=== PATIENT | female | born 1980 | race Caucasian/White ===

== ENCOUNTER 2019-06-09 16:04 | Emergency (ER) | payer BC, SELFPAY ==
--- NOTE | 2019-06-09 16:08 | ED.GENADULT ---
HPI - General Adult General Chief complaint: Upper Respiratory Infection Stated complaint: Asthma cough Time Seen by Provider: 06/09/19 16:23 Source: patient and RN notes reviewed Mode of arrival: ambulatory Limitations: no limitations History of Present Illness HPI narrative: This patient's had a one-week history of a cough which is productive of yellow to light green phlegm without chest pain. She has had a little a.m. shortness of breath. She has a history of asthma and this respiratory infection has triggered off her asthma. 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 She has had no chest pain. She has not had any fever. She has not had any ear pain or nasal drainage. She has had no rashes. She has had no known exposure to anyone with strep throat, mono, influenza, bronchitis, pneumonia that she is aware of. She has not been traveling. She has run out of her Advair and albuterol inhalers and wishes to have a refill on these today. Related Data Home Medications Medication Instructions Recorded Confirmed albuterol sulfate 06/09/19 Allergies Allergy/AdvReac Type Severity Reaction Status Date / Time ciprofloxacin [From Cipro] Allergy Unknown Verified 06/09/19 16:20 escitalopram [From Lexapro] AdvReac Unknown Verified 06/09/19 16:21 Review of Systems Review of Systems: Narrative: CONSTITUTIONAL: Denies fever, chills, or sweats. Noncontributory except as pertains to the past medical history and the history of the present illness. EYES: Denies visual changes, redness, or discharge. ENT: Denies rhinorrhea, congestion, sore throat, or otalgia. CARDIOVASCULAR: Denies chest pain, palpitations, or edema. RESPIRATORY: Denies cough or dyspnea. GASTROINTESTINAL: Denies abdominal pain, nausea, vomiting, or diarrhea. GENITOURINARY: Denies dysuria or hematuria. SKIN: Denies rash or itching. MUSCULOSKELETAL: Denies back pain, joint pain, or myalgia. NEUROLOGIC: Denies headache, numbness, or weakness. PSYCHIATRIC: Denies anxiety or depression. [facility] Social History Social History Gender identity (if verbalized by the patient): Female Comments At time of signature, I have reviewed and agree with nursing past medical, surgical, social, and family history.Please see nursing chart for further information. There is no relevant family history pertinent to the presenting complaint. Exam Narrative: Exam Narrative: GENERAL: Well-appearing, well-nourished, and in no acute distress. HEAD: Normocephalic, atraumatic. EYES: PERRLA and EOMI. EARS: TM's clear bilaterally and the canals are clear. NOSE: Nares clear, no rhinorrhea or epistaxis. THROAT:Mucous membranes moist.Oropharynx normal without erythema or exudates. NECK: Supple. No adenopathy of the neck, supraclavicular, axillary, or inguinal areas. RESPIRATORY: No respiratory distress. Airway patent. Respirations non-labored. The lungs have minor rhonchi in the upper and midlung clemente but not the bases. There are no wheezes, no rales, no retractions, no use of accessory muscle respirations. She is not cyanotic and not dyspneic. Her pulse ox on room air is 98% her current temperature is 98.9. She has a loose wet sounding cough during the exam. HEART: Regular rate and rhythm. No murmur heard. Normal peripheral pulses. ABDOMEN: Soft, nontender, nondistended, normal active bowel sounds.No masses. No rebound or guarding, No organomegaly. There is no CVA pain. No pain McBurney's point. The patient is a negative Kennedy sign and negative Rovsing sign. There are no pulsatile masses no audible bruits. EXTREMITIES: No clubbing/cyanosis/ edema. Normal strength & range of motion. SKIN: Warm, dry.Normal color. No rash or skin lesions. Patient is well-nourished well-hydrated and has moist mucous membranes and no tenting of the skin. NEURO: Alert and oriented. CN 2-12 grossly intact. No focal deficits. PSYCH: Normal mood and affect. Course Vital
[2019-06-09 16:18] VITALS: BP 111/68; PULSE 98; RESP 16; TEMP 37.2; O2SAT 98
== END 2019-06-09 16:38 | disposition home or self-care (01) ==
PROVIDERS: Emergency Provider Family Medicine
DX: J40 Bronchitis, not specified as acute or chronic (principal); J45.20 Mild intermittent asthma, uncomplicated
CPT/HCPCS: 99203; G0463

== ENCOUNTER 2019-06-28 19:08 | Emergency (ER) | payer BC, SELFPAY ==
[2019-06-28 19:19] VITALS: BP 141/79; PULSE 78; RESP 16; TEMP 36.2; O2SAT 98
--- NOTE | 2019-06-28 19:27 | ED.FEMALEGU ---
HPI - Female Genitourinary General Chief complaint: Urogenital-Female Stated complaint: Genital itchy/bumps Time Seen by Provider: 06/28/19 19:20 Source: patient and RN notes reviewed Mode of arrival: ambulatory Limitations: no limitations History of Present Illness HPI Narrative: Patient presents today complaining of irritated bumps to her external genitalia that are white in color x1 week. Symptoms have been worsening since onset. Denies any vaginal discharge or pain. She has not tried any [id number] medications for symptoms prior to arrival. MD elicited complaint: genital rash Related Data Allergies Allergy/AdvReac Type Severity Reaction Status Date / Time escitalopram [From Lexapro] Allergy Intermediate Hallucinati Verified 06/28/19 19:19 ng ciprofloxacin [From Cipro] AdvReac Intermediate Muscle Pain Verified 06/28/19 19:19 Review of Systems Review of Systems: Narrative: CONSTITUTIONAL: Denies body aches, fever, chills, or sweats. EYES: Denies visual changes, redness, or discharge. ENT: Denies rhinorrhea, congestion, sore throat, or otalgia. CARDIOVASCULAR: Denies chest pain, palpitations, or edema. RESPIRATORY: Denies cough or dyspnea. GASTROINTESTINAL: Denies abdominal pain, nausea, vomiting, or diarrhea. GENITOURINARY: Denies dysuria or hematuria. SKIN: Denies wounds.+ Rash MUSCULOSKELETAL: Denies back pain, joint pain, or myalgia. NEUROLOGIC: Denies headache, numbness, tingling, or weakness. PSYCH: Denies depression or anxiety. [facility] Social History Social History Gender identity (if verbalized by the patient): Female Comments At time of signature, I have reviewed and agree with nursing past medical, surgical, social and family history unless otherwise noted. Please see nursing chart for further information. There is no relevant family history pertinent to the presenting complaint Exam Narrative: Exam Narrative: GENERAL: Well-appearing, well-nourished, and in no acute distress. HEAD: Normocephalic, atraumatic. EYES: EOMI. No redness or drainage. Conjunctivae normal. ENT: Mucous membranes pink and moist. NECK: Normal AROM. CHEST: No respiratory distress. : Midlly erythematous papular rash to the bilateral outer labia. Mildly erythematous inner labia with small amount of excoriation on the right. Erythematous vaginal opening. Small amount of white thin discharge. No vesicular lesions. EXTREMITIES: Normal range of motion. No edema. SKIN: Warm, dry, no rash. NEURO: No focal deficits. Alert and oriented x3. Gait steady. PSYCH: Normal affect. No signs of depression or anxiety. Course Vital Signs Vital signs: Vital Signs Temperature 97.2 F L 06/28/19 19:19 Pulse Rate 78 06/28/19 19:19 Respiratory Rate 16 06/28/19 19:19 Blood Pressure 141/79 H 06/28/19 19:19 Pulse Oximetry 98 06/28/19 19:19 Temperature 97.2 F L 06/28/19 19:19 Pulse Rate 78 06/28/19 19:19 Respiratory Rate 16 06/28/19 19:19 Blood Pressure 141/79 H 06/28/19 19:19 Pulse Oximetry 98 06/28/19 19:19 Reviewed. Pt has been instructed to follow up with her PCP regarding her elevated blood pressure today. MDM - Female Genitourinary Differential Diagnosis Differential diagnosis: Likely bacterial vaginosis, vaginitis and other (Vulvovaginitis, Mona) Critical Care Time Critical Care Time Critical Care Time: No Discharge Plan Discharge Clinical Impression: Candidal vulvovaginitis Patient Disposition: Home, Self-Care Condition: Stable Instructions: Vulvovaginal Candidiasis (ED) Additional Instructions: Please take the Diflucan as prescribed. Follow-up with an [facility] if symptoms are not resolving. Your blood pressure was elevated above 120/80 today at Urgent Care. This puts you above the threshold for follow up. Please schedule a followup visit with your personal physician as soon as possible, for further evaluation and treatment. Even blood pressure exceeding 120/80 ma
== END 2019-06-28 19:30 | disposition home or self-care (01) ==
PROVIDERS: Emergency Provider Nurse Practitioner
DX: B37.3 Candidiasis of vulva and vagina (principal)
CPT/HCPCS: 99213; G0463

== ENCOUNTER 2019-08-14 16:36 | Emergency (ER) | payer BC, SELFPAY ==
--- NOTE | ~2019-08-14 | XR_ITS ---
EXAMINATION: XR chest 2V DATE: 08/14/2019 17:09 INDICATION: Cough and wheezing TECHNIQUE: PA and lateral views of the chest are obtained. COMPARISON: None available FINDINGS: The lungs are free of acute opacities. There is no pleural effusion or pneumothorax. The ca rdiomediastinal silhouette is normal. There is mild dextrocurvature of the thoracic spine. IMPRESSION: 1. No acute cardiopulmonary abnormality. Reviewed, dictated and finalized at location A.
[2019-08-14 16:46] VITALS: BP 116/74; PULSE 81; RESP 18; TEMP 37.1; O2SAT 97
--- NOTE | 2019-08-14 16:50 | ED.ASTHMA ---
HPI - Asthma General Chief Complaint: Upper Respiratory Infection Stated Complaint: wheezing/cough Time Seen by Provider: 08/14/19 16:50 Source: patient Mode of arrival: ambulatory Limitations: no limitations History of Present Illness HPI Narrative: Valerie Hairston is a 39 yo female with a prior history of asthma comes to [facility] care for refill of prescriptions and mentions that also has had cough and upset stomach. No fever Related Data Home Medications Medication Instructions Recorded Confirmed fluticasone propion-salmeterol INHALATION 08/14/19 [Wixela Inhub] Allergies Allergy/AdvReac Type Severity Reaction Status Date / Time escitalopram [From Lexapro] Allergy Intermediate Hallucinati Verified 06/28/19 19:19 ng ciprofloxacin [From Cipro] AdvReac Intermediate Muscle Pain Verified 06/28/19 19:19 Review of Systems Review of Systems: Narrative: CONSTITUTIONAL: Denies fever, chills, sweats. EYES: Denies visual changes, redness, discharge. ENT: Denies rhinorrhea, congestion, sore throat, otalgia. CARDIOVASCULAR: Denies chest pain, palpitations, edema. RESPIRATORY: Denies dyspnea, mild wheezing, dry cough GASTROINTESTINAL: Denies abdominal pain, has nausea, vomiting, has diarrhea. GENITOURINARY: Denies dysuria, hematuria, abnormal discharge SKIN: Denies rash or itching. NEUROLOGIC: Denies numbness, or focal weakness. PSYCHIATRIC: Denies anxiety or depression. [facility] Family History Family History Other Hypertension Social History Social History (Updated 08/14/19 @ 17:01 by Kimmie Negron CNP) Smoking status: Current every day smoker Alcohol intake: current Gender identity (if verbalized by the patient): Female Exam Narrative: Exam Narrative: GENERAL: This is a well-nourished, well-developed patient, in mild distress. afebrile, HEAD: normocephalic, atraumatic. EYES: Sclera clear/white. Vision is grossly intact. EARS: External ears normal, Hearing grossly intact. NOSE: External nose normal with nasal discharge, nares without redness, has rhinorrhea. THROAT: Mucous membranes moist, posterior pharynx mild erythema NECK: Neck supple, non-tender CARDIOVASCULAR: Regular rate and rhythm without murmurs, gallops, or rubs. RESPIRATORY: Diminished to auscultation. Breath sounds equal bilaterally. Mild wheezes om left, rales, or rhonchi. Occ dry cough GASTROINTESTINAL: Abdomen soft, non-tender, SKIN: warm, intact with no suspicious lesions or rash, good texture and turgor. NEURO: awake, alert, and oriented to person, place and time. There were no obvious focal neurologic abnormalities. Steady gait EXTREMITIES: Normal range of motion. BACK: Nontender without deformity Course Course Emergency Course: Med refill fills for asthma-asthma, [place] Chest x-ray negative for acute cardiopulmonary process Vital Signs Vital signs: Vital Signs Temperature 98.7 F 08/14/19 16:46 Pulse Rate 81 08/14/19 16:46 Respiratory Rate 18 08/14/19 16:46 Blood Pressure 116/74 08/14/19 16:46 Pulse Oximetry 97 08/14/19 16:46 Temperature 98.7 F 08/14/19 16:46 Pulse Rate 81 08/14/19 16:46 Respiratory Rate 18 08/14/19 16:46 Blood Pressure 116/74 08/14/19 16:46 Pulse Oximetry 97 08/14/19 16:46 MDM - Asthma Differential Diagnosis Differential diagnosis: Likely Acute exacerbation, Pneumonia and other Discharge Plan Discharge Clinical Impression: Asthma Qualifiers: Asthma severity: mild Asthma persistence: intermittent Asthma complication type: uncomplicated Qualified Code(s): J45.20 - Mild intermittent asthma, uncomplicated Patient Disposition: Home, Self-Care Condition: Stable Instructions: Antibiotic Form, Asthma (ED) Prescriptions: New fluticasone propion-salmeterol [Wixela Inhub] 250-50 mcg/dose blister with device 1 inhalation INHALATION Q12H Qty: 60 RF: 0 albuterol sulfate 90 mcg/actuation HF
== END 2019-08-14 17:23 | disposition home or self-care (01) ==
PROVIDERS: Emergency Provider Nurse Practitioner
DX: J45.20 Mild intermittent asthma, uncomplicated (principal); F17.200 Nicotine dependence, unspecified, uncomplicated
CPT/HCPCS: 71046; 99213; G0463

== ENCOUNTER 2019-12-21 15:56 | Emergency (ER) | payer BC, SELFPAY ==
[2019-12-21 16:05] VITALS: BP 121/81; PULSE 93; RESP 18; TEMP 36.7; O2SAT 100
--- NOTE | 2019-12-21 16:20 | ED.UPPEXIN ---
HPI - Extremity Injury (Upper) General Chief Complaint: Extremity Injury, Upper Stated Complaint: Right Wrist Pain Time Seen by Provider: 12/21/19 16:12 Source: patient and RN notes reviewed Mode of arrival: ambulatory Limitations: no limitations History of Present Illness HPI narrative: Patient presents today complaining of 10 to 14-day history of right wrist pain. Denies any injury or trauma. Describes the pain as sharp, pulling, and burning. Currently rates her pain 2/10, which increases to 5/10 with movement. She has been taking aspirin and Tylenol without much relief. She does not work at this time and does not do any repetitive motions at home. Denies numbness or tingling in the arm or hand. Related Data Home Medications Medication Instructions Recorded Confirmed dicyclomine 20 mg PO QID 12/21/19 12/21/19 omeprazole magnesium [Prilosec OTC] 20 mg PO DAILY 12/21/19 12/21/19 rifaximin [Xifaxan] 550 mg PO TID 12/21/19 12/21/19 Allergies Allergy/AdvReac Type Severity Reaction Status Date / Time escitalopram [From Lexapro] Allergy Intermediate Hallucinati Verified 12/21/19 16:13 ng ciprofloxacin [From Cipro] AdvReac Intermediate Muscle Pain Verified 12/21/19 16:13 Review of Systems Review of Systems: Narrative: CONSTITUTIONAL: Denies body aches, fever, chills, or sweats. EYES: Denies visual changes, redness, or discharge. ENT: Denies rhinorrhea, congestion, sore throat, or otalgia. CARDIOVASCULAR: Denies chest pain, palpitations, or edema. RESPIRATORY: Denies cough or dyspnea. GASTROINTESTINAL: Denies abdominal pain, nausea, vomiting, or diarrhea. GENITOURINARY: Denies dysuria or hematuria. SKIN: Denies rash, itching, or wounds. MUSCULOSKELETAL: Denies back pain, or myalgia. + Right wrist pain NEUROLOGIC: Denies headache, numbness, tingling, or weakness. PSYCH: Denies depression or anxiety. [facility] Social History Social History (Updated 08/14/19 @ 17:01 by Kimmie Negron CNP) Smoking status: Current every day smoker Alcohol intake: current Gender identity (if verbalized by the patient): Female Comments At time of signature, I have reviewed and agree with nursing past medical, surgical, social and family history unless otherwise noted. Please see nursing chart for further information. There is no relevant family history pertinent to the presenting complaint Exam Narrative: Exam Narrative: GENERAL: Well-appearing, well-nourished, and in no acute distress. HEAD: Normocephalic, atraumatic. EYES: EOMI. No redness or drainage. Conjunctivae normal. ENT: Mucous membranes pink and moist. NECK: Normal AROM. CHEST: No respiratory distress. EXTREMITIES: Right wrist: Tenderness to the dorsum of the distal radius, extending to the mid forearm. Patient reports some swelling to the forearm, but this is not visualized. No ecchymosis, erythema. Pain increases with flexion and extension of the wrist. Distal sensation intact. Capillary refill normal. Radial pulse normal. All other extremities grossly normal. SKIN: Warm, dry, no rash. Capillary refill normal. Normal skin turgor. NEURO: No focal deficits. Alert and oriented x3. Gait steady. PSYCH: Normal affect. No signs of depression or anxiety. Course Vital Signs Vital signs: Vital Signs Temperature 98.0 F 12/21/19 16:05 Pulse Rate 93 12/21/19 16:05 Respiratory Rate 18 12/21/19 16:05 Blood Pressure 121/81 12/21/19 16:05 Pulse Oximetry 100 12/21/19 16:05 Temperature 98.0 F 12/21/19 16:05 Pulse Rate 93 12/21/19 16:05 Respiratory Rate 18 12/21/19 16:05 Blood Pressure 121/81 12/21/19 16:05 Pulse Oximetry 100 12/21/19 16:05 Reviewed. Pt has been instructed to follow up with her PCP regarding her elevated blood pressure today. MDM - Extremity Injury (Upper) Differential Diagnosis Differential diagnosis: Likely sprain and strain of wrist and other (Carpal tunnel, tendinitis) Critical Care Time Critical Car
== END 2019-12-21 16:23 | disposition home or self-care (01) ==
PROVIDERS: Emergency Provider Nurse Practitioner
DX: M77.9 Enthesopathy, unspecified (principal); F17.200 Nicotine dependence, unspecified, uncomplicated
CPT/HCPCS: 99212; G0463

== ENCOUNTER 2020-05-04 15:22 | Emergency (ER) | payer BC, SELFPAY ==
[2020-05-04 15:32] VITALS: BP 149/92; PULSE 90; RESP 18; TEMP 37.1; O2SAT 100
--- NOTE | 2020-05-04 15:39 | ED.ANIMALBIT ---
HPI - Animal Bite General Chief Complaint: Animal Bite Stated Complaint: Dog Bite on hand Time Seen by Provider: 05/04/20 15:30 Source: patient Mode of arrival: ambulatory Limitations: no limitations History of Present Illness HPI narrative: Valerie Hairston is a 40 yo female with no PMH who was bitten by a neighbor's dog while walking hers. Both women and her dog attacked. States that the dog had its rabies shots. Wound is a puncture jian on the left palm with more glancing park on the dorsum of her left hand, patient states that hand is stiff and painful to move although she has movement and is able to bend fingers without difficulty Given a tetanus shot is does not know when the last time she had one is Related Data Allergies Allergy/AdvReac Type Severity Reaction Status Date / Time escitalopram [From Lexapro] Allergy Intermediate Hallucinati Verified 05/04/20 15:42 ng ciprofloxacin [From Cipro] AdvReac Intermediate Muscle Pain Verified 05/04/20 15:42 Review of Systems Review of Systems: Narrative: CONSTITUTIONAL: Denies fever, chills, sweats. EYES: Denies visual changes, redness, discharge. ENT: Denies rhinorrhea, congestion, sore throat, otalgia. CARDIOVASCULAR: Denies chest pain, palpitations, edema. RESPIRATORY: Denies dyspnea, wheezing, cough GASTROINTESTINAL: Denies abdominal pain, nausea, vomiting, diarrhea. GENITOURINARY: Denies dysuria, hematuria, abnormal discharge SKIN: Denies rash or itching. Dog bite to left palm of hand NEUROLOGIC: Denies numbness, or focal weakness. PSYCHIATRIC: Denies anxiety or depression. [facility] Past Medical History Medical History (Updated 05/04/20 @ 15:56 by Kimmie Negron CNP) Depression Family History Family History Other Hypertension Social History Social History Smoking status: Current every day smoker Alcohol intake: current Gender identity (if verbalized by the patient): Female Comments At time of signature, I agree with nursing past medical, surgical, social and family history. There is no relevant family history pertinent to the presenting complaint. BP elevated, patient upset about dog- will follow up with pcp Exam Narrative: Exam Narrative: GENERAL: This is a well-nourished, well-developed patient, in mild distress. HEAD: normocephalic, atraumatic. EYES: . Sclera clear/white. Vision is grossly intact. EARS: External ears normal, . Hearing grossly intact. NOSE: External nose normal without nasal discharge, nares without redness, no rhinorrhea. THROAT: Mucous membranes moist, NECK: Neck supple, non-tender CARDIOVASCULAR: Regular rate and rhythm without murmurs, gallops, or rubs. RESPIRATORY: Clear to auscultation. Breath sounds equal bilaterally. No wheezes, rales, or rhonchi. GASTROINTESTINAL: Abdomen soft, SKIN: warm, intact with redness and single puncture jian on palm side mid palm of left hand. Minor scratches on the dorsum side NEURO: awake, alert, and oriented to person, place and time. There were no obvious focal neurologic abnormalities. Steady gait EXTREMITIES: Normal range of motion. BACK: Nontender without deformity Course Course Emergency Course: Patient came here with dog bite to left hand Single puncture jian to palm side of left hand was cleaned pressure dressing applied; patient was given tetanus; started on Augmentin; given [place] for pain Vital Signs Vital signs: Vital Signs Temperature 98.8 F 05/04/20 15:32 Pulse Rate 90 05/04/20 15:32 Respiratory Rate 18 05/04/20 15:32 Blood Pressure 149/92 H 05/04/20 15:32 Pulse Oximetry 100 05/04/20 15:32 Temperature 98.8 F 05/04/20 15:32 Pulse Rate 90 05/04/20 15:32 Respiratory Rate 18 05/04/20 15:32 Blood Pressure 149/92 H 05/04/20 15:32 Pulse Oximetry 100 05/04/20 15:32 MDM - Animal Bite Differential Diagnosis Differential diagn
[2020-05-04] MEDS: TETANUS,DIPHTHERIA,AC PERTUSSIS ADULT (0.5 ML) BOOSTRIX IM (15:43)
== END 2020-05-04 15:51 | disposition home or self-care (01) ==
PROVIDERS: Emergency Provider Nurse Practitioner
DX: S61.452A Open bite of left hand, initial encounter (principal); Z23 Encounter for immunization; W54.0XXA Bitten by dog, initial encounter; F17.200 Nicotine dependence, unspecified, uncomplicated
CPT/HCPCS: 90471; 90714; 90715; 99213; G0463

== ENCOUNTER 2020-10-12 19:15 | Emergency (ER) | payer SELFPAY ==
--- NOTE | 2020-10-12 19:19 | ED.FEMALEGU ---
HPI - Female Genitourinary General Chief complaint: Urogenital-Female Stated complaint: uti Time Seen by Provider: 10/12/20 19:19 Source: patient and RN notes reviewed Mode of arrival: ambulatory Limitations: no limitations History of Present Illness HPI Narrative: 40-year-old female presents with concern for burning with urination, suprapubic cramping, foul smelling urine, dark-colored urine. Reports symptoms have been present for 1-1 and half weeks. She reports she also had unprotected sex approximately 2 weeks ago. She denies any abnormal vaginal discharge, vaginal irritation or rash. She denies fever, abdominal pain, nausea, vomiting, body aches, chills. MD elicited complaint: UTI Related Data Home Medications Medication Instructions Recorded Confirmed No Home Medications 10/12/20 10/12/20 Allergies Allergy/AdvReac Type Severity Reaction Status Date / Time escitalopram [From Lexapro] Allergy Intermediate Hallucinati Verified 10/12/20 19:35 ng ciprofloxacin [From Cipro] AdvReac Intermediate Muscle Pain Verified 10/12/20 19:35 Review of Systems Review of Systems: Narrative: CONSTITUTIONAL: Denies malaise, chills, sweats, or fever. CARDIOVASCULAR: Denies chest pain, palpitations, or edema. RESPIRATORY: Denies cough or dyspnea. GASTROINTESTINAL: Denies abdominal pain, nausea, vomiting, diarrhea, bloody, or mucous stools. GENITOURINARY: Reports dysuria, suprapubic discomfort, foul-smelling urine, cloudy urine denies frequency, urgency, hematuria. SKIN: Denies rash or itching. MUSCULOSKELETAL: Denies back pain, joint pain, or myalgia. All systems reviewed & are unremarkable except as noted in HPI and below [facility] Past Medical History Medical History (Updated 10/12/20 @ 19:56 by Joelle Foote NP) Depression Family History Family History Other Hypertension Social History Social History Smoking status: Current every day smoker Alcohol intake: current Gender identity (if verbalized by the patient): Female Comments At time of signature, agree with nursing past medical, surgical, social and family history. There is no relevant family history pertinent to the presenting complaint Exam Narrative: Exam Narrative: GENERAL: Well-appearing, well-nourished, and in no acute distress. HEAD: Normocephalic. EYES: PERRLA, conjunctivae clear. NECK: Supple. No lymphadenopathy CHEST: Clear to auscultation. No respiratory distress. HEART: Regular rate and rhythm. ABDOMEN: Soft, nontender upon palpation, nondistended, normal active bowel sounds, no palpable or pulsatile masses, no guarding. No CVA tenderness SKIN: Warm, dry, no rash. NEURO: Alert and oriented x3. PSYCH: Normal mood and affect Course Course Emergency Course: Discussed with patient inability to prophylactically treat gonorrhea, chlamydia today due to no supply of azithromycin. 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 Patient understands that she should abstain from sex or have protected sex until she has her results in her treatment. Patient is aware of, understands and agrees to treatment plan. Anticipatory guidance given. Patient agrees to follow-up as directed and is aware of reasons to seek care at the emergency department. Portions of this record may have been created with voice recognition software Vital Signs Vital signs: Vital Signs Temperature 97.6 F 10/12/20 19:27 Pulse Rate 80 10/12/20 19:27 Respiratory Rate 16 10/12/20 19:27 Blood Pressure 132/72 10/12/20 19:27 Pulse Oximetry 99 10/12/20 19:27 Temperature 97.6 F 10/12/20 19:27 Pulse Rate 80 10/12/20 19:27 Respiratory Rate 16 10/12/20 19:27 Blood Pressure 132/72 10/12/20 19:27 Pulse Oximetry 99 10/12/20 19:27 Reviewed. MDM - Female G
[2020-10-12 19:27] VITALS: BP 132/72; PULSE 80; RESP 16; TEMP 36.4; O2SAT 99
--- NOTE | 2020-10-14 15:20 | PC.NURSE ---
spoke to regina sandoval, and requested reorder of trich test.
== END 2020-10-12 20:10 | disposition home or self-care (01) ==
PROVIDERS: Emergency Provider Nurse Practitioner
DX: N39.0 Urinary tract infection, site not specified (principal); Z72.51 High risk heterosexual behavior; F17.200 Nicotine dependence, unspecified, uncomplicated
CPT/HCPCS: 81003; 87086; 87088; 87491; 87591; 87661; 99214; G0463

== ENCOUNTER 2021-03-21 12:54 | Emergency (ER) | payer BC, SELFPAY ==
--- NOTE | 2021-03-21 13:03 | ED.URI ---
HPI - URI/Sore Throat General Chief Complaint: Upper Respiratory Infection Stated Complaint: Sore throat,Ear Pain History of Present Illness HPI Narrative: This a 41-year-old that presents to the urgent care complaining of fever, chills, headache, body aches, sore throat. Patient states symptoms started yesterday states she took some ibuprofen last night Related Data Home Medications Medication Instructions Recorded Confirmed albuterol sulfate 2 inh INHALATION DAILY 03/21/21 03/21/21 fluticasone propion-salmeterol 2 inh INHALATION DAILY 03/21/21 03/21/21 [Wixela Inhub] Allergies Allergy/AdvReac Type Severity Reaction Status Date / Time escitalopram [From Lexapro] Allergy Intermediate Hallucinati Verified 03/21/21 13:07 ng ciprofloxacin [From Cipro] AdvReac Intermediate Muscle Pain Verified 03/21/21 13:07 Review of Systems Review of Systems: Sore throat, headache, fever, body aches All systems reviewed & are unremarkable except as noted in HPI and below PMFSH Past Medical History Medical History (Updated 03/22/21 @ 00:02 by Bert Jenkins) Depression Family History Family History Other Hypertension Social History Social History Smoking status: Current every day smoker Alcohol intake: current Gender identity (if verbalized by the patient): Female Comments At time as signature, I have reviewed and agree with nursing past medical, social, surgical and family history. Please see nursing chart for further information. There is no relevant family history pertinent to the presenting complaint. Exam Narrative: GENERAL:ill-appearing in no acute distress. Febrile HEAD:Normocephalic, EYES: PERRLA ENT: Nares clear, clear rhinorrhea . Mucous membranes moist. Postnasal drainage CHEST: Coarse with scattered wheezes to auscultation. No respiratory distress. HEART: Tachycardic rate and rhythm. ABDOMEN: Soft, nontender, nondistended, normal active bowel sounds. EXTREMITIES: Normal range of motion. No edema. SKIN: Warm, dry, no rash. NEURO: No focal deficits. Alert and oriented x3. Patient refuses a strep test, she has refused a influenza test and states that she is only going to accept a Covid test Course Course Emergency Course: Patient refused influenza swab, Strep swab and she states she came for a covid swab her symptoms started last night. Vital Signs Vital signs: Vital Signs Temperature 102.6 F H 03/21/21 13:05 Pulse Rate 113 H 03/21/21 13:05 Respiratory Rate 18 03/21/21 13:05 Blood Pressure 145/80 H 03/21/21 13:05 Pulse Oximetry 99 03/21/21 13:05 Temperature 102.4 F H 03/21/21 13:44 Pulse Rate 113 H 03/21/21 13:05 Respiratory Rate 18 03/21/21 13:05 Blood Pressure 145/80 H 03/21/21 13:05 Pulse Oximetry 99 03/21/21 13:05 MDM - URI/Sore Throat MDM Narrative Medical decision making narrative: Had a discussion with patient about her symptoms explained to patient that if she was Covid positive then I treat 1 way but if she had influenza or the strep throat I would treat differently but patient still refused test she will be scheduled for outpatient Covid swab. As patient has only been having symptoms since last night less than 24 hours we will schedule for outpatient services Differential Diagnosis Differential diagnosis: Likely upper respiratory infection, croup, otitis media, sinusitis, viral infection, bronchitis, influenza and pharyngitis Discharge Plan Discharge Clinical Impression: Viral infection Fever Qualifiers: Fever type: unspecified Qualified Code(s): R50.9 - Fever, unspecified Patient Disposition: Home, Self-Care Condition: Stable Instructions: Antibiotic Form, Pharyngitis (ED), Viral Syndrome (ED) Additional Instructions: Viral illness may last between 7-12days; antibiotic is NOT recommended at this time. Recommend antih
[2021-03-21 13:05] VITALS: BP 145/80; PULSE 113; RESP 18; TEMP 39.2; O2SAT 99
[2021-03-21 13:22] VITALS: TEMP 39.2
[2021-03-21] MEDS: IBUPROFEN 600 MG TABLET PO (13:22)
[2021-03-21 13:44] VITALS: TEMP 39.1
== END 2021-03-21 13:44 | disposition home or self-care (01) ==
PROVIDERS: Emergency Provider Nurse Practitioner Family; PCP Nurse Practitioner Family
DX: B34.9 Viral infection, unspecified (principal); R50.9 Fever, unspecified; F17.200 Nicotine dependence, unspecified, uncomplicated
CPT/HCPCS: 99213; A9270; G0463

== ENCOUNTER → 2021-03-23 03:13 | Outpatient (CLI) | payer BC, SELFPAY ==
[2021-03-23 17:50] LABS: SARS-CoV-2 RNA PCR Negative
== END ==
PROVIDERS: PCP Nurse Practitioner Family; Visit Provider Nurse Practitioner Family
DX: R50.9 Fever, unspecified (principal); Z20.822 Contact with and (suspected) exposure to COVID-19
CPT/HCPCS: C9803; U0003; U0005

== ENCOUNTER 2021-03-24 10:56 | Emergency (ER) | payer BC, SELFPAY ==
[2021-03-24 11:10] VITALS: BP 142/84; PULSE 74; RESP 18; TEMP 36.2; O2SAT 100
--- NOTE | 2021-03-24 11:32 | ED.DENTAL ---
HPI - Dental/Oral General Chief complaint: Dental/Oral Stated complaint: painful sores in nasal/lip area Source: patient Mode of arrival: ambulatory Limitations: no limitations History of Present Illness HPI Narrative: Patient is a 41-year-old female who presents complaining of fever blisters to mouth and nose. Patient recently has had viral illness and has been treated prednisone. Patient's Covid test was negative. Patient reports she is feeling much better and noticed many fever blisters starting approximately 2 days ago. She denies using any [id number] cream for treatment of relief. She denies all other complaints at this time. Patient reports she has had Valtrex for the same in the past. Related Data Home Medications Medication Instructions Recorded Confirmed albuterol sulfate 2 inh INHALATION DAILY 03/21/21 03/24/21 fluticasone propion-salmeterol 2 inh INHALATION DAILY 03/21/21 03/24/21 [Wixela Inhub] Allergies Allergy/AdvReac Type Severity Reaction Status Date / Time escitalopram [From Lexapro] Allergy Intermediate Hallucinati Verified 03/24/21 11:01 ng ciprofloxacin [From Cipro] AdvReac Intermediate Muscle Pain Verified 03/24/21 11:01 Review of Systems Review of Systems: CONSTITUTIONAL: Denies fever, chills, or sweats. EYES: Denies visual changes, redness, or discharge. ENT: Denies rhinorrhea, congestion, sore throat, or otalgia. CARDIOVASCULAR: Denies chest pain, palpitations, or edema. RESPIRATORY: Denies cough or dyspnea. GASTROINTESTINAL: Denies abdominal pain, nausea, vomiting, or diarrhea. GENITOURINARY: Denies dysuria or hematuria. SKIN: Reports blisters to mouth and nose MUSCULOSKELETAL: Denies back pain, joint pain, or myalgia. NEUROLOGIC: Denies headache, numbness, dizziness, or weakness. PSYCHIATRIC: Denies anxiety or depression. [facility] Past Medical History Medical History Depression Family History Family History Other Hypertension Social History Social History Smoking status: Current every day smoker Alcohol intake: current Gender identity (if verbalized by the patient): Female Comments At the time of signature, I have reviewed and agree with nursing past medical, surgical, social, and family history unless otherwise noted. Please see nursing chart for further information. There is no relevant family history pertinent to the presenting complaint. Exam Narrative: GENERAL: Well-appearing, well-nourished, and in no acute distress. HEAD: Normocephalic, atraumatic. EYES: EOMI. No redness or drainage. Conjunctiva are normal. ENT: Mucous membranes pink and moist. Clusters of blisters to upper and lower lip and in right nares. NECK: AROM. Supple. No lymphadenopathy. CHEST: No respiratory distress. HEART: Regular rate and rhythm. EXTREMITIES: Normal range of motion. SKIN: Warm, dry, no rash. NEURO: No focal deficits. Alert and oriented x3. Gait steady. PSYCH: Normal affect. No signs of depression or anxiety. Course Vital Signs Vital signs: Vital Signs Temperature 36.2 C L 03/24/21 11:10 Pulse Rate 74 03/24/21 11:10 Respiratory Rate 18 03/24/21 11:10 Blood Pressure 142/84 H 03/24/21 11:10 Pulse Oximetry 100 03/24/21 11:10 Temperature 36.2 C L 03/24/21 11:10 Pulse Rate 74 03/24/21 11:10 Respiratory Rate 18 03/24/21 11:10 Blood Pressure 142/84 H 03/24/21 11:10 Pulse Oximetry 100 03/24/21 11:10 Reviewed-patient is informed that they may have pre-hypertension or hypertension based on a blood pressure reading. I recommend the patient call the primary care provider listed on their discharge instructions or a physician of their choice this week to arrange follow-up for further evaluation of possible pre-hypertension or hypertension. MDM - Dental/Oral MDM Narr
== END 2021-03-24 11:47 | disposition home or self-care (01) ==
PROVIDERS: Emergency Provider Nurse Practitioner
DX: B00.9 Herpesviral infection, unspecified (principal); F17.200 Nicotine dependence, unspecified, uncomplicated
CPT/HCPCS: 99213; G0463

== ENCOUNTER 2021-05-29 15:38 | Emergency (ER) | payer BC, SELFPAY ==
[2021-05-29 15:46] VITALS: BP 132/77; PULSE 89; RESP 16; TEMP 36.8; O2SAT 100
--- NOTE | 2021-05-29 16:07 | ED.WOUNDLAC ---
HPI - Wound/Laceration General Chief Complaint: Wound/Laceration Stated Complaint: Laceration on finger Time Seen by Provider: 05/29/21 16:05 Source: patient, RN notes reviewed and old records reviewed Mode of arrival: ambulatory Limitations: no limitations History of Present Illness HPI narrative: 41-year-old female presents to the [facility] with left second finger distal aspect pain and concern for infection. Patient states about a week and a half ago she hit her finger with a configuration consultant knife. Was seen at [facility], area was cleaned and Dermabond applied. Patient states that she went back with concerns over infection but was prescribed Bactroban and Bactrim. Has been taking it. Tip of finger does not appear red, warm or swollen. Related Data Home Medications Medication Instructions Recorded Confirmed albuterol sulfate 2 inh INHALATION DAILY 03/21/21 03/24/21 fluticasone propion-salmeterol 2 inh INHALATION DAILY 03/21/21 03/24/21 [Wixela Inhub] Allergies Allergy/AdvReac Type Severity Reaction Status Date / Time escitalopram [From Lexapro] Allergy Intermediate Hallucinati Verified 03/24/21 11:01 ng ciprofloxacin [From Cipro] AdvReac Intermediate Muscle Pain Verified 03/24/21 11:01 Review of Systems Review of Systems: All systems reviewed & are unremarkable except as noted in HPI and below Constitutional: Constitutional: Reports no additional constitutional complaints, Denies chills and Denies fever(s) Eyes: Eyes: Reports no additional eye complaints ENT: Reports system reviewed and no additional complaints, except as documented Cardiovascular: Cardiovascular: Reports no additional cardiovascular complaints Respiratory: Respiratory: Reports no additional respiratory complaints Musculoskeletal: Musculoskeletal: Reports as per HPI Comments: 2nd finger left hand pain Integumentary/Breasts: Skin/Breast: Reports system reviewed and no additional complaints, except as docu Neurologic: Reports system reviewed and no additional complaints, except as documented Psychiatric: Psychiatric: Reports no additional psychiatric complaints Allergic/Immunologic: Allergic/Immunologic: Reports no additional allergic/immunologic complaints [facility] Past Medical History Medical History Depression Family History Family History Other Hypertension Social History Social History Smoking status: Current every day smoker Alcohol intake: current Gender identity (if verbalized by the patient): Female Comments At the time of my signature, I reviewed and agree with the nursing past medical, surgical, social, and family history. There is no relevant family history pertinent to the patient complaint. Exam Const: General: healthy appearing, no acute distress and alert Nutritional Appearance: well nourished Orientation/consciousness: patient oriented x3 Limitations: no limitations HENMT: Head: normal to inspection Ears: external ears normal Eyes: Pupils: Equal, round and reactive pupils present Neck: Neck: normal visual inspection, no lymphadenopathy and no meningeal signs Chest: Chest palpation & inspection: normal inspection of the chest Resp: Effort & Inspection: normal respiratory effort Cardio: Rate: regular rate Back/Spine/Pelvis: Back: no CVA tenderness Skin: General skin exam: normal color Rashes: no rashes Other: Has Dermabond to the distal aspect left finger, around the nail. Healing laceration under Dermabond. No swelling, redness or increased warmth to the area. No drainage noted. Tenderness to the area Neuro: General: patient oriented x3, moves all extremities, no meningeal signs and no focal motor deficits Speech: normal speech Gait exam (Neuro): Normal gait present Extrem: General: normal to inspection Psych: Appearance: grossl
== END 2021-05-29 16:20 | disposition home or self-care (01) ==
PROVIDERS: Emergency Provider Nurse Practitioner; PCP Nurse Practitioner Family
DX: M79.645 Pain in left finger(s) (principal); F17.200 Nicotine dependence, unspecified, uncomplicated
CPT/HCPCS: 99212; G0463

== ENCOUNTER 2021-11-26 19:29 | Emergency (ER) | payer BC, SELFPAY ==
[2021-11-26 19:57] VITALS: BP 137/84; PULSE 80; RESP 20; TEMP 36.6; O2SAT 100
--- NOTE | 2021-11-26 20:02 | ED.SKABFB ---
HPI - Skin/Abscess/Foreign Bdy General Chief complaint: Skin/Abscess/Foreign Body Stated complaint: LEFT FOOT 1ST DIGITED INFECTED TOE Time Seen by Provider: 11/26/21 20:03 Source: patient, RN notes reviewed and old records reviewed Mode of arrival: ambulatory Limitations: no limitations History of Present Illness HPI narrative: 41-year-old female presents to the [facility] with left great toe infection. Bruising, swelling, redness and fluctuance noted around the nail. Nail is loose. Patient states that she dropped something on it a month ago. It was bruised, tried drilling a hole in the top of the nail without any success. Nail is currently loose. States the redness and the pus area started a few days ago, unsure of timeframe. Poor foot hygiene noted Related Data Allergies Allergy/AdvReac Type Severity Reaction Status Date / Time escitalopram [From Lexapro] Allergy Intermediate Hallucinati Verified 03/24/21 11:01 ng ciprofloxacin [From Cipro] AdvReac Intermediate Muscle Pain Verified 03/24/21 11:01 Review of Systems Review of Systems: All systems reviewed & are unremarkable except as noted in HPI and below Constitutional: Constitutional: Reports no additional constitutional complaints, Denies chills and Denies fever(s) Eyes: Eyes: Reports no additional eye complaints ENT: Reports system reviewed and no additional complaints, except as documented Cardiovascular: Cardiovascular: Reports no additional cardiovascular complaints Respiratory: Respiratory: Reports no additional respiratory complaints Gastrointestinal: Gastrointestinal: Reports no additional gastrointestinal complaints Musculoskeletal: Musculoskeletal: Reports no additional musculoskeletal complaints Integumentary/Breasts: Skin/Breast: Reports as per HPI and Reports erythema (Left great toe) Neurologic: Reports system reviewed and no additional complaints, except as documented Psychiatric: Psychiatric: Reports no additional psychiatric complaints Allergic/Immunologic: Allergic/Immunologic: Reports no additional allergic/immunologic complaints [facility] Past Medical History Medical History Depression Family History Family History Other Hypertension Social History Social History Smoking status: Current every day smoker Alcohol intake: current Gender identity (if verbalized by the patient): Female Comments At the time of my signature, I reviewed and agree with the nursing past medical, surgical, social, and family history. There is no relevant family history pertinent to the patient complaint. Exam Const: General: healthy appearing, no acute distress and alert Nutritional Appearance: well nourished and obese Orientation/consciousness: patient oriented x3 Limitations: no limitations HENMT: Head: normal to inspection Ears: external ears normal Eyes: General: appearance normal, both eyes and all related structures Pupils: Equal, round and reactive pupils present Neck: Neck: normal visual inspection, no lymphadenopathy and no meningeal signs Chest: Chest palpation & inspection: normal inspection of the chest Resp: Effort & Inspection: normal respiratory effort and no use of accessory muscles Auscultation: clear to auscultation bilaterally, no crackles, no rales, no rhonchi and no wheezes Cardio: Rate: regular rate Rhythm: regular rhythm Back/Spine/Pelvis: Cervical Spine: normal cervical lordosis Thoracic/Lumbar Spine: thoracic and lumbar spine normal to inspection Skin: General skin exam: normal color Rashes: no rashes Wounds: no wounds Other: Redness and inflammation noted around left great toe. Small pus pocket noted at the base of the nail. Neuro: General: patient oriented x3, moves all extremities, no meningeal signs and no focal motor deficits Cranial nerv
== END 2021-11-26 20:40 | disposition home or self-care (01) ==
PROVIDERS: Emergency Provider Nurse Practitioner
DX: L08.9 Local infection of the skin and subcutaneous tissue, unspecified (principal); S90.412A Abrasion, left great toe, initial encounter; W20.8XXA Other cause of strike by thrown, projected or falling object, initial encounter; S90.212A Contusion of left great toe with damage to nail, initial encounter; F17.200 Nicotine dependence, unspecified, uncomplicated
CPT/HCPCS: 99213; G0463

== ENCOUNTER 2022-03-08 09:35 | Emergency (ER) | payer BC, SELFPAY ==
[2022-03-08 09:54] VITALS: BP 131/93; PULSE 81; RESP 16; TEMP 36.8; O2SAT 100
--- NOTE | 2022-03-08 10:19 | ED.EAR ---
HPI - Ear Problem General Chief complaint: Ear Stated complaint: hearing loss right ear Time Seen by Provider: 03/08/22 10:23 Source: patient, RN notes reviewed and old records reviewed Mode of arrival: ambulatory Limitations: no limitations History of Present Illness HPI Narrative: 42-year-old female presents to the [facility] decreased hearing in the right ear for 2 weeks. Has also stated she has had intermittent stuffy nose. No treatment prior to arrival. Has not followed up with a primary care provider, reports that she does not have 1. Requesting refills of advir, received when she had COVID last November Complaint: decreased hearing Related Data Allergies Allergy/AdvReac Type Severity Reaction Status Date / Time escitalopram [From Lexapro] Allergy Intermediate Hallucinati Verified 03/08/22 10:10 ng ciprofloxacin [From Cipro] AdvReac Intermediate Muscle Pain Verified 03/08/22 10:10 Review of Systems Review of Systems: All systems reviewed & are unremarkable except as noted in HPI and below Constitutional: Constitutional: Reports no additional constitutional complaints, Denies chills and Denies fever(s) Eyes: Eyes: Reports no additional eye complaints ENT: Reports as per HPI Cardiovascular: Cardiovascular: Reports no additional cardiovascular complaints Respiratory: Respiratory: Reports no additional respiratory complaints Gastrointestinal: Gastrointestinal: Reports no additional gastrointestinal complaints Musculoskeletal: Musculoskeletal: Reports no additional musculoskeletal complaints Integumentary/Breasts: Skin/Breast: Reports system reviewed and no additional complaints, except as docu Neurologic: Reports system reviewed and no additional complaints, except as documented Psychiatric: Psychiatric: Reports no additional psychiatric complaints Allergic/Immunologic: Allergic/Immunologic: Reports no additional allergic/immunologic complaints [facility] Past Medical History Medical History Depression Family History Family History Other Hypertension Social History Social History Smoking status: Current every day smoker Alcohol intake: current Gender identity (if verbalized by the patient): Female Comments At the time of my signature, I reviewed and agree with the nursing past medical, surgical, social, and family history. There is no relevant family history pertinent to the patient complaint. Exam Const: General: healthy appearing, no acute distress, alert and well nourished Nutritional Appearance: well nourished and obese Orientation/consciousness: patient oriented x3 Limitations: no limitations HENMT: Head: normal to inspection Ears: external ears normal and TM abnormal with fluid behind the TM on the right; not erythematous and with no loss of landmarks Face/Nose/Sinus: Normal external nose present and Normal nares present Face and sinus: normal facial exam Mouth: Yes Normal oral and palatal mucosa present, Yes lip normal and Yes moist mucous membranes Throat: posterior oropharynx normal and uvula midline Eyes: General: appearance normal, both eyes and all related structures Pupils: Equal, round and reactive pupils present Neck: Neck: normal visual inspection, no lymphadenopathy and no meningeal signs Chest: Chest palpation & inspection: normal inspection of the chest Resp: Effort & Inspection: normal respiratory effort and no use of accessory muscles Auscultation: clear to auscultation bilaterally, no crackles, no rales, no rhonchi and no wheezes Cardio: Rate: regular rate Rhythm: regular rhythm Skin: General skin exam: normal color Rashes: no rashes Wounds: no wounds Neuro: General: patient oriented x3, moves all extremities, no meningeal signs and no focal motor deficits Cranial nerves: Yes Equal, round and oniel
== END 2022-03-08 10:42 | disposition home or self-care (01) ==
PROVIDERS: Emergency Provider Nurse Practitioner
DX: H65.01 Acute serous otitis media, right ear (principal); F17.290 Nicotine dependence, other tobacco product, uncomplicated
CPT/HCPCS: 99213; G0463

== ENCOUNTER 2023-07-22 10:51 | Emergency (ER) | payer SELFPAY ==
--- NOTE | ~2023-07-22 | XR_ITS ---
EXAMINATION: XR chest 2V DATE: 07/22/2023 11:49 INDICATION: Cough. Congestion. TECHNIQUE: Frontal and lateral views of the chest were obtained. COMPARISON: Chest 2 views 08/14/2019 FINDINGS: There is no pneumonia, pleural effusion, or pneumothorax. The heart size is normal. IMPRESSION: 1. No acute cardiopulmonary disease. Reviewed, dictated and finalized at location A.
[2023-07-22 11:01] VITALS: BP 121/72; PULSE 76; RESP 18; TEMP 36.7; O2SAT 99
--- NOTE | 2023-07-22 11:31 | ED.URI ---
HPI - URI/Sore Throat General Chief Complaint: Upper Respiratory Infection Stated Complaint: Sinus Time Seen by Provider: 07/22/23 11:31 Source: patient, RN notes reviewed and old records reviewed Mode of arrival: ambulatory Limitations: no limitations History of Present Illness HPI Narrative: 43-year-old female presents to [facility] for complaint productive with clear sputum, congestion, bilateral ear discomfort and myalgias for 1 week. Patient denies fever, nausea, vomiting, diarrhea, headache, sore throat. Patient endorses history of asthma and states that she does not have her inhalers at home because she does not have insurance. Respirations even and nonlabored, no signs of distress. Patient able to tolerate fluids by mouth Related Data Allergies Allergy/AdvReac Type Severity Reaction Status Date / Time escitalopram [From Lexapro] Allergy Intermediate Hallucinati Verified 07/22/23 11:12 ng ciprofloxacin [From Cipro] AdvReac Intermediate Muscle Pain Verified 07/22/23 11:12 Review of Systems Review of Systems: All systems reviewed & are unremarkable except as noted in HPI and below Constitutional: Constitutional: Reports body ache(s), Denies fever(s) and Denies headache(s) Eyes: Eyes: Reports no additional eye complaints ENT: Reports otalgia ( bilateral), Reports nasal congestion, Reports nasal discharge, Reports sinus pressure and Denies sore throat Cardiovascular: Cardiovascular: Reports no additional cardiovascular complaints, Denies chest pain and Denies dyspnea Respiratory: Respiratory: Reports no additional respiratory complaints, Reports chest congestion, Reports cough, Denies dyspnea and Reports wheezing Musculoskeletal: Musculoskeletal: Reports myalgias Neurologic: Reports system reviewed and no additional complaints, except as documented Psychiatric: Psychiatric: Reports no additional psychiatric complaints [facility] Past Medical History Medical History Depression Family History Family History Other Hypertension Social History Social History Smoking status: Current every day smoker Alcohol intake: current Gender identity (if verbalized by the patient): Female Comments At the time of my signature, I reviewed and agree with the nursing past medical, surgical, social, and family history. There is no relevant family history pertinent to the patient complaint. Exam Const: General: cooperative, healthy appearing, comfortable, no acute distress, alert and well nourished Nutritional Appearance: well nourished Orientation/consciousness: patient oriented x3 Limitations: no limitations HENMT: Head: normal to inspection Ears: external ears normal Face/Nose/Sinus: Normal external nose present, Normal nares present, normal facial exam, No erythema and No edema Face and sinus: normal facial exam, no erythema and no edema Mouth: Yes Normal oral and palatal mucosa present Throat: posterior oropharynx abnormal erythema and postnasal drainage Eyes: General: appearance normal, both eyes and all related structures Neck: Neck: normal visual inspection, full ROM and no meningeal signs Lymphatic: no lymphadenopathy noted and no lymphedema noted Chest: Chest palpation & inspection: normal inspection of the chest Resp: Effort & Inspection: normal respiratory effort and able to speak in complete sentences Auscultation: wheezes expiratory wheezes, inspiratory wheezes and scattered wheezes Cardio: Jugular venous distension: no JVD Rate: regular rate Rhythm: regular rhythm Back/Spine/Pelvis: Cervical Spine: cervical ROM normal Skin: General skin exam: normal color, no rashes or lesions noted and turgor normal Neuro: General: patient oriented x3, gait normal, moves all extremities and no meningeal signs Speech: normal speech Gait ex
[2023-07-22] MEDS: ALBUTEROL SULFATE NEB 2.5 MG/3 ML INH INHALATION (11:54)
[2023-07-22] MEDS: IPRATROPIUM BR 0.02% INH SOLN 0.5 MG/2.5 ML VIAL INHALATION (11:54)
== END 2023-07-22 12:42 | disposition home or self-care (01) ==
PROVIDERS: Emergency Provider Nurse Practitioner Family
DX: J06.9 Acute upper respiratory infection, unspecified (principal); Z20.822 Contact with and (suspected) exposure to COVID-19; F17.200 Nicotine dependence, unspecified, uncomplicated
CPT/HCPCS: 71046; 87426; 87804; 94640; 99213; G0463

== ENCOUNTER 2024-06-27 15:42 | Emergency (ER) | payer OTHER, SELFPAY ==
--- NOTE | 2024-06-27 15:50 | ED_ITS ---
HPI - Dental/Oral General Chief complaint: Dental/Oral Stated complaint: TOOTHACHE/SWELLING Time Seen by Provider: 06/27/24 15:58 Source: patient Mode of arrival: ambulatory Limitations: no limitations History of Present Illness HPI Narrative: 44-year-old female presents with concern for left upper and lower dental pain. Reports it hurts to open her mouth. Reports today she noticed jaw swelling. Reports symptoms started over a week ago. MD Complaint: tooth pain Related Data Allergies Allergy/AdvReac Type Severity Reaction Status Date / Time escitalopram (From Lexapro) Allergy Intermediate Hallucinati Verified 06/27/24 15:49 ng ciprofloxacin (From Cipro) AdvReac Intermediate Muscle Pain Verified 06/27/24 15:49 Review of Systems Review of Systems: CONSTITUTIONAL: Denies malaise, chills, sweats, or fever. EYES: Denies visual changes, redness, or discharge. ENT: Denies rhinorrhea, congestion, sinus pain, otalgia or sore throat. Reports left upper lower dental pain RESPIRATORY: Denies cough or dyspnea. GASTROINTESTINAL: Denies nausea, vomiting SKIN: Denies rash or itching. MUSCULOSKELETAL: Denies myalgia. NEUROLOGIC: Denies headache. All systems reviewed & are unremarkable except as noted in HPI and below PMFSH Past Medical History Medical History Depression Family History Family History Other Hypertension Social History Social History Smoking status: Current every day smoker Alcohol intake: current Gender identity (if verbalized by the patient): Female Comments At the time of signature, I have reviewed and agree with nursing past medical, surgical, social, and family history unless otherwise noted. Please see nursing chart for further information. There is no relevant family history pertinent to the presenting complaint. Exam Narrative: GENERAL: Well-appearing, well-nourished, and in no acute distress. HEAD: Normocephalic, atraumatic. EYES: PERRLA, sclera clear, and EOMI. No nystagmus. ENT: Nares clear, turbinates pink, no rhinorrhea or epistaxis. Mucous membranes moist. TM pearly samson with sharp light reflex bilaterally; no tragal tenderness. Oropharynx without erythema or lesions. Tonsils not enlarged and without exudate. Caries noted, broken teeth noted, slight left cheek swelling noted NECK: Supple. No lymphadenopathy. CHEST: No respiratory distress. No bony deformities, no asymmetry. Speaks in full sentences. HEART: Regular rate and rhythm. No murmur heard. Normal peripheral pulses. SKIN: Warm, dry, no visible rash. NEURO: Alert and oriented x3. PSYCH: Normal mood and affect Course Course Emergency Course: Patient is aware of diagnosis, understands and agrees to treatment plan. Anticipatory guidance given. Patient agrees to follow-up as directed and is aware of reasons to seek care at the emergency department. Portions of this record may have been created with voice recognition software Level of Care: Express Care Visit Vital Signs Vital signs: Reviewed-patient is informed that they may have pre-hypertension or hypertension based on a blood pressure reading. I recommend the patient call the primary care provider listed on their discharge instructions or a physician of their choice this week to arrange follow-up for further evaluation of possible pre- hypertension or hypertension. MDM - Dental/Oral MDM Narrative Medical decision making narrative: Patients pain and complaint coupled with physical findings are consistant with dentalgia. There are no focal signs of space occupying lesions that are compromising to the airway; no dysphagia, odynophagia, dysphonia, or dyspnea. No uvular deviation or soft palate edema. Patient is non-toxic appearing. The floor of the mouth is soft with no signs of Alton's Angina; no induration below mandible, no neck pain. Patient is without trismus or drooling and able to swallow secretions. Patient is felt appropriate for discharge home with dental follow up. Differential Diagnosis Differential diagnosis: Likely gingival abscess, dental caries, toothache, dental abscess, fracture of tooth and aphthous ulcer Medical Records Attestation: I reviewed the patient's medical records. Critical Care Time Critical Care Time Critical Care Time: No Discharge Plan Discharge Clinical Impression: Toothache Patient Disposition: Home, Self-Care Condition: Stable Instructions: Antibiotic Form, Toothache (ED) Additional Instructions: Take antibiotic as directed Avoid temperature extremes May apply heat or ice to the face Gentle brushing and flossing Take 2 extra strength Tylenol, 4 ibuprofen, 80 mg of caffeine at same time. You can do this every 6 hours. Do not do this for more than 2 - 3 days. You can substitute 25 mg Benadryl at nighttime for caffeine to help you sleep. Do this for no more than 3 days. Follow-up with the dentist as soon as possible - see the list provided Patient Language: Montenegrin Prescriptions: New clindamycin HCl 300 mg capsule 300 mg PO Q8H 7 Days Qty: 21 0RF Follow-up/Referrals: PHYSICIAN,DENTAL LABORATORY TECHNICIAN APPRENTICE [Primary Care Provider] - Time of Disposition: 16:06
[2024-06-27 15:52] VITALS: BP 127/89; PULSE 79; RESP 16; TEMP 36.1; O2SAT 100
== END 2024-06-27 16:09 | disposition home or self-care (01) ==
PROVIDERS: Emergency Provider Nurse Practitioner
DX: K08.89 Other specified disorders of teeth and supporting structures (principal); F17.200 Nicotine dependence, unspecified, uncomplicated
CPT/HCPCS: 99213; G0463

== ENCOUNTER 2024-08-04 14:35 | Emergency (ER) | payer OTHER, SELFPAY ==
[2024-08-04 14:46] VITALS: BP 143/85; PULSE 79; RESP 16; TEMP 36.6; O2SAT 99
--- NOTE | 2024-08-04 14:56 | ED.DENTAL ---
HPI - Dental/Oral General Chief complaint: Dental/Oral Stated complaint: Tooth Pain/Med Refill Time Seen by Provider: 08/04/24 14:57 Source: patient, RN notes reviewed and old records reviewed Mode of arrival: ambulatory Limitations: no limitations History of Present Illness MD Complaint: tooth pain Severity scale (1-10): 5 Related Data Allergies Allergy/AdvReac Type Severity Reaction Status Date / Time escitalopram (From Lexapro) Allergy Intermediate Hallucinati Verified 08/04/24 14:43 ng ciprofloxacin (From Cipro) AdvReac Intermediate Muscle Pain Verified 08/04/24 14:43 Review of Systems Review of Systems: CONSTITUTIONAL: Denies fever, chills, or sweats. ENT: Denies rhinorrhea, congestion, sore throat, or otalgia. Reports dental pain to most posterior tooth left upper and to the left 1st molar on the bottom CARDIOVASCULAR: Denies chest pain, palpitations, or edema. RESPIRATORY: Reports cough, wheezing, and some dyspnea. SKIN: Denies rash or itching. MUSCULOSKELETAL: Denies myalgia. NEUROLOGIC: Denies headache All systems reviewed & are unremarkable except as noted in HPI and below PMFSH Past Medical History Medical History Depression Family History Family History Other Hypertension Social History Social History Smoking status: Current every day smoker Alcohol intake: current Gender identity (if verbalized by the patient): Female Comments At time of signature, agree with nursing past medical, surgical, social and family history. There is no relevant family history pertinent to the presenting complaint Exam Narrative: GENERAL: Well-appearing, well-nourished, and in no acute distress. HEAD: Normocephalic, atraumatic. EYES: PERRLA and EOMI. ENT: Nares clear, no rhinorrhea or epistaxis. Mucous membranes moist. Missing teeth, broken teeth, caries NECK: Supple. CHEST: Clear to auscultation. No respiratory distress. HEART: Regular rate and rhythm. No murmur heard. Normal peripheral pulses. SKIN: Warm, dry, no rash. NEURO: No focal deficits. Alert and oriented x3. Course Course Emergency Course: Patient is aware of diagnosis, understands and agrees to treatment plan. Anticipatory guidance given. Patient agrees to follow-up as directed and is aware of reasons to seek care at the emergency department. Portions of this record may have been created with voice recognition software Level of Care: Express Care Visit Vital Signs Vital signs: Vital Signs Temperature 36.6 C 08/04/24 14:46 Pulse Rate 79 08/04/24 14:46 Respiratory Rate 16 08/04/24 14:46 Blood Pressure 143/85 H 08/04/24 14:46 Pulse Oximetry 99 08/04/24 14:46 Temperature 36.6 C 08/04/24 14:46 Pulse Rate 79 08/04/24 14:46 Respiratory Rate 16 08/04/24 14:46 Blood Pressure 143/85 H 08/04/24 14:46 Pulse Oximetry 99 08/04/24 14:46 Reviewed MDM - Dental/Oral MDM Narrative Medical decision making narrative: Patients pain and complaint coupled with physical findings are consistent with dentalgia. There are no focal signs of space occupying lesions that are compromising to the airway; no dysphagia, odynophagia, dysphonia, or dyspnea. No uvular deviation or soft palate edema. Patient is non-toxic appearing. The floor of the mouth is soft with no signs of Alton's Angina; no induration below mandible, no neck pain.? Patient is without trismus or drooling and able to swallow secretions.? Patient is felt appropriate for discharge home with dental follow up. Critical Care Time Critical Care Time Critical Care Time: No Discharge Plan Discharge Clinical Impression: Toothache, Dental caries Asthma Qualifiers: Asthma severity: mild Asthma persistence: intermittent Asthma complication type: uncomplicated Qualified Code(s): J45.20 - Mild intermittent asthma, uncomplicated Patient Disposition: Home, Self-Care Condition: Stable Instructions: Antibiotic Form, Toothache (ED), Wheezing (ED) Additional Instructions: Avoid temperature extremes May apply heat or ice to the face Gentle brushing and flossing Antibiotic as directed Tylenol for lesser pain Use ibuprofen regularly Use the medication as provided for severe pain--caution each tablet contains 325 mg of Tylenol--the maximum dose of Tylenol is 4000 mg in 24 hours. This medication may cause constipation consider starting a laxative at this time Follow-up with the dentist as soon as possible-Reports appointment in 3 weeks Increase fluids especially juices and water Continue your inhaler/nebulizer as directed Steroids as directed--take with food heat to the face 20-30 minutes 4-6 times a day for pain If your symptoms persist, change or worsen significantly before you can contact your personal physician then please, without delay, go to the emergency department for further evaluation. Follow-up with PCP in 7-10 days or sooner if needed Follow up with PCP soon in regards to your blood pressure which is elevated above threshold for referral. Blood pressure above 120/80 may indicate pre-hypertension. Patient Language: Hungarian Prescriptions: New clindamycin HCl 300 mg capsule 300 mg PO Q8H Qty: 30 0RF hydrocodone-acetaminophen 7.5-325 mg tablet 1 tablet PO Q6H PRN (Reason: pain) Qty: 10 0RF Rx Instructions: use for acute pain albuterol sulfate [Ventolin HFA] 90 mcg/actuation HFA aerosol inhaler 2 puff inhalation QID PRN (Reason: shortness of breath or wheezing) Qty: 6.7 0RF Rx Instructions: use as instructed for cough and wheezing prednisone 20 mg tablet 20 mg PO BID Qty: 10 0RF Follow-up/Referrals: PHYSICIAN,BURNISHING MACHINE OPERATOR [Primary Care Provider] - Stand Alone Forms: Work/School Release IP Time of Disposition: 15:21 Quality [place] Coma Scale Eyes: Open Verbal: Oriented and Alert Motor: Follows Commands Simone Coma Total Score: 15
== END 2024-08-04 15:26 | disposition home or self-care (01) ==
PROVIDERS: Emergency Provider Registered Nurse
DX: K08.89 Other specified disorders of teeth and supporting structures (principal); K02.9 Dental caries, unspecified; J45.20 Mild intermittent asthma, uncomplicated; F17.200 Nicotine dependence, unspecified, uncomplicated
CPT/HCPCS: 99213; G0463

== ENCOUNTER 2024-09-21 08:24 | Emergency (ER) | payer OTHER, SELFPAY ==
[2024-09-21 08:44] VITALS: BP 132/88; PULSE 81; RESP 16; TEMP 36; O2SAT 99
--- NOTE | 2024-09-21 09:06 | ED.EYEPROB ---
HPI - Eye Problem General Chief complaint: Eye Problems Stated complaint: EYE REDNESS/ITCHING Source: patient Mode of arrival: ambulatory Limitations: no limitations History of Present Illness HPI Narrative: Patient is a 44-year-old female who presents to the clinic with complaints of redness and itching to bilateral eyes since yesterday. She is also complaining of sinus pressure and congestion since 8 days ago. She states that she started feeling better and then got worse again 2 days ago. Denies any shortness of breath, vision changes, difficulty swallowing, nausea, fevers, or body aches. Related Data Allergies Allergy/AdvReac Type Severity Reaction Status Date / Time escitalopram (From Lexapro) Allergy Intermediate Hallucinati Verified 08/04/24 14:43 ng ciprofloxacin (From Cipro) AdvReac Intermediate Muscle Pain Verified 08/04/24 14:43 Review of Systems Review of Systems: CONSTITUTIONAL: Denies body aches, fever, chills, or sweats. Reports EYES: Denies visual changes. Reports redness and discharge. ENT: Reports rhinorrhea, congestion. Denies sore throat or otalgia. CARDIOVASCULAR: Denies chest pain, palpitations, or edema. RESPIRATORY: Denies cough or dyspnea. GASTROINTESTINAL: Denies abdominal pain, nausea, vomiting, or diarrhea. GENITOURINARY: Denies dysuria or hematuria. SKIN: Denies rash, itching, or wounds. MUSCULOSKELETAL: Denies back pain, joint pain, or myalgia. NEUROLOGIC: Denies headache, numbness, tingling, or weakness. PSYCH: Denies depression or anxiety. All systems reviewed & are unremarkable except as noted in HPI and below PMFSH Past Medical History Medical History GERD (gastroesophageal reflux disease) Asthma Depression Family History Family History Other Hypertension Social History Social History Smoking status: Current every day smoker Tobacco type: e-cigarettes/vaping Alcohol intake: current Gender identity (if verbalized by the patient): Female Comments At time of signature, I have reviewed and agree with nursing past medical, surgical, social and family history unless otherwise noted. Please see nursing chart for further information. There is no relevant family history pertinent to the presenting complaint. Exam Narrative: GENERAL: Well-appearing, well-nourished, and in no acute distress. EYES: EOMI. Periorbital erythema and yellow drainage noted in bilateral eyes . Conjunctivae injection noted bilaterally. ENT: Mucous membranes pink and moist. Nares clear. No rhinorrhea. TMs normal bilaterally. Throat normal. No tonsillar exudate, uvula midline. Nasal congestion noted. NECK: Normal AROM. Supple. No lymphadenopathy. CHEST: No respiratory distress. Clear to auscultation. HEART: Regular rate and rhythm. No murmur appreciated. Normal peripheral pulses. ABDOMEN: Soft, nontender, nondistended, normal active bowel sounds. SKIN: Warm, dry, no rash. Capillary refill normal. Normal skin turgor. NEURO: No focal deficits. Alert and oriented x3. Gait steady. PSYCH: Normal affect. No signs of depression or anxiety. Course Course Level of Care: Express Care Visit Vital Signs Vital signs: Vital Signs Temperature 96.8 F L 09/21/24 08:44 Pulse Rate 81 09/21/24 08:44 Respiratory Rate 16 09/21/24 08:44 Blood Pressure 132/88 09/21/24 08:44 Pulse Oximetry 99 09/21/24 08:44 Temperature 96.8 F L 09/21/24 08:44 Pulse Rate 81 09/21/24 08:44 Respiratory Rate 16 09/21/24 08:44 Blood Pressure 132/88 09/21/24 08:44 Pulse Oximetry 99 09/21/24 08:44 Reviewed. MDM - Eye Problem MDM Narrative Medical decision making narrative: Discussed physical exam findings. Antibiotic given for bacterial sinusitis. Eye drops given for conjunctivitis. Advised supportive measures and signs/symptoms to go to the ER. Pt is appropriate for outpatient treatment and follow up. Differential Diagnosis Differential diagnosis: Likely conjunctivitis and other (sinusitis, URI ) Critical Care Time Critical Care Time Critical Care Time: No Discharge Plan Discharge Clinical Impression: Acute bacterial sinusitis Conjunctivitis Qualifiers: Conjunctivitis type: acute Acute conjunctivitis type: unspecified Laterality: bilateral Qualified Code(s): H10.33 - Unspecified acute conjunctivitis, bilateral Patient Disposition: Home Condition: Stable Instructions: Antibiotic Form, Sinusitis (ED), Conjunctivitis (ED) Additional Instructions: Conjunctivitis: Avoid touching or rubbing your eye. Use over the counter lubricating eye drops as needed for irritation Use a warm or cool washcloth on your eye for comfort Use eyedrops as directed - you are contagious for 24 hours after starting the antibiotic Practice good handwashing and hygiene to prevent spread of infection Do not wear the contact lenses. Use a new pair after the infection is resolved. Use new makeup, lashes etc. You may take Tylenol or ibuprofen for pain Sinus Infection: Take antibiotic as prescribed Recommend Flonase spray and Zyrtec (or Claritin/Yani) over the counter Cough syrup may cause drowsiness; avoid driving or take it at night time. Tylenol 1000mg every 8 hours as needed for pain Symptomatic treatment includes: rest, fluids, and increase humidity of the air at home. Follow-up with PCP or key ringer if condition is not improving in 2-3days. Go to the emergency room if you have severe pain or pressure behind your eye, difficulty seeing, shortness of breath, difficulty swallowing, or other severe symptoms. Patient Language: Kazakh Prescriptions: New polymyxin B sulf-trimethoprim 10,000 unit- 1 mg/mL drops 1 drp EACH EYE QID 5 Days Qty: 10 0RF Rx Instructions: while awake; do not exceed 6 doses in 24 hours amoxicillin-pot clavulanate 875-125 mg tablet 1 tablet PO Q12H 7 Days Qty: 14 0RF No Action clindamycin HCl 300 mg capsule 300 mg PO Q8H Qty: 30 0RF hydrocodone-acetaminophen 7.5-325 mg tablet 1 tablet PO Q6H PRN (Reason: pain) Qty: 10 0RF Rx Instructions: use for acute pain albuterol sulfate [Ventolin HFA] 90 mcg/actuation HFA aerosol inhaler 2 puff inhalation QID PRN (Reason: shortness of breath or wheezing) Qty: 6.7 0RF Rx Instructions: use as instructed for cough and wheezing prednisone 20 mg tablet 20 mg PO BID Qty: 10 0RF Follow-up/Referrals: PHYSICIAN,RETIREMENT SALES CONSULTANT [Primary Care Provider] - Time of Disposition: 09:21
== END 2024-09-21 09:29 | disposition home or self-care (01) ==
DX: J01.90 Acute sinusitis, unspecified (principal); H10.33 Unspecified acute conjunctivitis, bilateral; F17.290 Nicotine dependence, other tobacco product, uncomplicated; J45.909 Unspecified asthma, uncomplicated; K21.9 Gastro-esophageal reflux disease without esophagitis
CPT/HCPCS: 99213; G0463

== ENCOUNTER 2024-12-03 13:57 | Emergency (ER) | payer OTHER, SELFPAY ==
--- NOTE | 2024-12-03 14:00 | ED_ITS ---
HPI - URI/Sore Throat General Chief Complaint: Upper Respiratory Infection Stated Complaint: Congestion Time Seen by Provider: 12/03/24 14:11 Source: patient, RN notes reviewed and old records reviewed Mode of arrival: ambulatory Limitations: no limitations History of Present Illness HPI Narrative: 44-year-old female presents to the [facility] with 3 day history of nasal congestion, scratchy throat, ear pressure. States that she has taken Mucinex. Denies chest pain. Denies fevers. Patient also reports a history of asthma and has been out of all of her medication, currently without a primary. Patient also reports that she is concern for urinary frequency for over 1 month. States that she has had some urgency as well. Patient also reports that intermittently over the last month or more has had an abnormal odor to her urine. Last menstrual period was 5 months ago, has taken an at home test multiple times in reports that negative. Onset (ago): day(s) Related Data Home Medications ?Medication ?Instructions ?Recorded ?Confirmed ?Last Taken ?Type albuterol sulfate 90 mcg/actuation inhalation 12/03/24 Unknown History aerosol inhaler Allergies Allergy/AdvReac Type Severity Reaction Status Date / Time escitalopram (From Lexapro) Allergy Intermediate Hallucinati Verified 12/03/24 13:59 ng ciprofloxacin (From Cipro) AdvReac Intermediate Muscle Pain Verified 12/03/24 13:59 Review of Systems Review of Systems: All systems reviewed & are unremarkable except as noted in HPI and below Constitutional: Constitutional: Reports as per HPI ENT: Reports as per HPI Cardiovascular: Cardiovascular: Reports no additional cardiovascular compla ints, Denies chest pain and Denies dyspnea Respiratory: Respiratory: Reports no additional respiratory complaints, Denies chest congestion, Denies cough and Denies dyspnea Musculoskeletal: Musculoskeletal: Reports no additional musculoskeletal complaints Integumentary/Breasts: Skin/Breast: Reports system reviewed and no additional complaints, except as docu PMFSH Past Medical History Medical History GERD (gastroesophageal reflux disease) Asthma Depression Family History Family History Other Hypertension Social History Social History Smoking status: Current every day smoker Tobacco type: e-cigarettes/vaping Alcohol intake: current Gender identity (if verbalized by the patient): Female Comments At the time of my signature, I reviewed and agree with the nursing past medical, surgical, social, and family history. There is no relevant family history pertinent to the patient complaint. Exam Const: General: cooperative, no acute distress, well developed, alert, tired appearing and well nourished Nutritional Appearance: well nourished and obese Orientation/consciousness: patient oriented x3 Limitations: no limitations HENMT: Head: normal to inspection Ears: hearing grossly normal bilaterally, external ears normal, TM normal on the left, EAC's normal, mastoids normal, no periauricular adenopathy and TM abnormal with fluid behind the TM on the right Face/Nose/Sinus: Normal external nose present, Nasal discharge present clear bilateral and face symmetric Face and sinus: no ecchymosis, no erythema and no edema Mouth: Yes Normal oral and palatal mucosa present, Yes lip normal, Yes tongue normal and Yes moist mucous membranes Throat: uvula midline, postnasal drainage and no uvular edema Eyes: General: appearance normal, both eyes and all related structures Alignment and Position: alignment normal Neck: Neck: normal visual inspection, full ROM, no lymphadenopathy and no meningeal signs Chest: Chest palpation & inspection: normal inspection of the chest Resp: Effort & Inspection: normal respiratory effort and able to speak in complete sentences Auscultation: no crackles, no rales, no rhonchi and wheezes expiratory wheezes and right lower Cardio: Rate: regular rate Skin: General skin exam: normal color and no rashes or lesions noted Neuro: General: patient oriented x3, gait normal, moves all extremities and no meningeal signs Cognition (Neuro): normal cognition Speech: normal speech Gait exam (Neuro): Normal gait present Extrem: General: normal to inspection, full ROM, capillary refill normal and normal gait Psych: Appearance: grossly normal and well kempt Mental Status: mental status grossly normal Speech and movement: Normal speech and movement present and Clear speech present Affect: normal affect Attitude: cooperative Course Course Level of Care: Express Care Visit Vital Signs Vital signs: Vital Signs Temperature 97.8 F 12/03/24 14:05 Pulse Rate 79 12/03/24 14:05 Respiratory Rate 16 12/03/24 14:05 Blood Pressure 129/80 12/03/24 14:05 Pulse Oximetry 100 12/03/24 14:05 Temperature 97.8 F 12/03/24 14:05 Pulse Rate 79 12/03/24 14:05 Respiratory Rate 16 12/03/24 14:05 Blood Pressure 129/80 12/03/24 14:05 Pulse Oximetry 100 12/03/24 14:05 Reviewed MDM - URI/Sore Throat MDM Narrative Medical decision making narrative: Patient sitting in exam room. Patient is nontoxic, vitals are stable. Patient presents 3 day history of sinus congestion, scratchy throat, ear pressure. Patient also reports she has been out of all of her home medications. Patient is also reporting she has had urgency frequency for over a month. Patient with clear rhinorrhea, fluid on the right ear, discussed [id number] treatments, symptoms for 3 days. Urine dip shows trace leukocytes, unlikely a UTI due to symptoms for 1 month. Will send for culture for verification. Patient reporting that she does have a history of asthma, will refill her inhaler, gave list of primary care providers for further evaluation Patient appropriate for outpatient treatment of viral URI. Discharge instructions reviewed with patient, as well as provided in writing per nursing staff. The instructions also include specific and strict return/GO TO THE ER as well as f/u information. All questions have been answered, and the patient deny any further questions with discharge and discharge plan. Some parts of this dictation were generated by voice recognition software and may contain typographical and/or grammatical inaccuracies. Differential Diagnosis Differential diagnosis: Likely upper respiratory infection, otitis media, sinusitis, viral infection, bronchitis, influenza and pharyngitis Lab Data Labs: Lab Results 12/03/24 Range/Units 14:12 POC Urine Color Yellow POC Urine Clarity Clear POC Urine pH 6.0 POC Ur Specif [place] 1.010 POC Urine Protein Negative (Negative) POC Ur Glucose (UA) Negative (Negative) POC Urine Ketones Negative (Negative) POC Urine Blood Trace (Negative) POC Urine Nitrite Negative (Negative) POC Urine Bilirubin Negative (Negative) POC Urine Urobilinogen 0.2 POC U Leukocyte Esteras Trace (Negative) Reviewed Critical Care Time Critical Care Time Critical Care Time: No Discharge Plan Discharge Clinical Impression: Upper respiratory infection, Sinusitis, Fluid level behind tympanic membrane of right ear, Urinary frequency Patient Disposition: Home Condition: Stable Instructions: Antibiotic Form, Fluid In The Ear (Serous Otitis Media) (ED), Urinary Urgency and Frequency (DC) Additional Instructions: Your symptoms are likely due to a viral illness, which is not treated with antibiotics. Typically viral infections last 7-10 days, can linger for couple of weeks. It is very important to treat your symptoms. Drink plenty of water, Gatorade, Pedialyte, ice pops or Jell-O. -Alternate Tylenol and Motrin per package directions for fever or pain. You can alternate every 4 hours -Antihistamine medication such as Zyrtec/Claritin/Yani during the day can help improve symptoms. -doing daily nasal irrigations can help relieve pressure your sinuses. Things like a Neti pot -Use Flonase twice a day for 5 days then daily to help reduce the inflammation and dry up your sinuses. -You can also use Mucinex. Follow package instructions. Be sure to drink plenty of water with this medication at least 8 ounces with every dose and it is important to drink 8 to 10 glasses of water per day. Water is a natural decongestant -Eat and drink things that are easy to swallow, like tea or soup, or popsicles. -Oral rinses such as: Salt water gargles and/or may use topical anesthetic (eg. Chloraseptic spray) or lozenges to relieve dryness or throat pain). -Frequent hand washing or hand mercury purifier is one of the best ways to prevent spread of infection. -Using a vaporizer or humidifier at night will also help thin secretions and help with coughing up phlegm. -Follow up with primary care provider in 7-10 days if condition is not improving If you are having a hard time finding a physician please call our [facility] liaison at [phone]. - For new or worsening symptoms go directly to the nearest ER Patient Language: Occitan Prescriptions: New albuterol sulfate 90 mcg/actuation HFA aerosol inhaler 2 puff inhalation TID PRN (Reason: shortness of breath or wheezing) Qty: 6.7 0RF No Action albuterol sulfate 90 mcg/actuation HFA aerosol inhaler INHALATION Follow-up/Referrals: PHYSICIAN,PRESCRIPTION [employer]ER [Primary Care Provider] - Regina Spring DO [Physician] - Time of Disposition: 14:46
[2024-12-03 14:05] VITALS: BP 129/80; PULSE 79; RESP 16; TEMP 36.6; O2SAT 100
[2024-12-03 14:14] LABS: EDUAAPPEAR Clear; EDUABILI Negative (Negative); EDUABLOOD Trace (Negative); EDUACOLOR1 Yellow; EDUAGLUCOSE Negative (Negative); EDUAKETONE Negative (Negative); EDUALEUKO Trace (Negative); EDUANITRATE Negative (Negative); EDUAPH 6.0; EDUAPROTEIN Negative (Negative); EDUASPGRAVITY 1.010; EDUAUROBILI 0.2
== END 2024-12-03 14:52 | disposition home or self-care (01) ==
PROVIDERS: Emergency Provider Nurse Practitioner
DX: J06.9 Acute upper respiratory infection, unspecified (principal); J32.9 Chronic sinusitis, unspecified; H73.891 Other specified disorders of tympanic membrane, right ear; R35.0 Frequency of micturition; F17.290 Nicotine dependence, other tobacco product, uncomplicated; J45.909 Unspecified asthma, uncomplicated; K21.9 Gastro-esophageal reflux disease without esophagitis
CPT/HCPCS: 81003; 87086; 99213; G0463